=== PATIENT | female | born 1980 | race African-American/Black ===

== ENCOUNTER 2017-11-07 09:21 | Emergency (ER) | payer SELFPAY ==
[2017-11-07] MEDS ORDERED: CYCLOBENZAPRINE 10 MG TAB ONE (10:16)
[2017-11-07] MEDS ORDERED: KETOROLAC 30 MG/ML INJ ONE (10:16)
--- NOTE | 2017-11-07 11:34 | EDPHYS ---
Physician Documentation [facility] Name: Lisa Leung Age: 37 yrs Sex: Female : 1980 Arrival Date: 11/07/2017 Time: 09:26 Bed 5 Private MD: ED Physician Estevan Keenan HPI: 11/07 11:00 This 37 yrs old Black Female presents to ER via EMS with complaints of Back Pain. pm1 11:00 The patient presents with pain that is acute, with no known mechanism of injury. The pm1 symptoms are located in the left trapezius, right trapezius, left mid back and right mid back. Onset: The symptoms/episode began/occurred this morning. The pain does not radiate. Associated signs and symptoms: Pertinent negatives: abdominal pain, chest pain, dysuria, fever, headache, nausea, numbness, tingling, vomiting. The problem was sustained without known cause. Modifying factors: The patient symptoms are alleviated by remaining still, the patient symptoms are aggravated by bending, movement. Severity of symptoms: in the emergency department the symptoms have improved. The patient has experienced similar episodes in the past, multiple times. Patient here from [facility] for drug rehabilitation by court order. Patient reports history of muscle spasms to the back in the past . Historical: - Allergies: 09:29 Codeine; sv - Home Meds: :29 None [Active]; sv - PMHx: 09:29 Hypertension; Depression; sv - Immunization history:: Adult Immunizations up to date. - Social history:: Smoking status: Patient/guardian denies using tobacco, Patient uses street drugs, marijuana. ROS: 11:00 Constitutional: Negative for fever, chills, and weight loss, Eyes: Negative for injury, pm1 pain, redness, and discharge, ENT: Negative for injury, pain, and discharge, Neck: Negative for injury, pain, and swelling, Cardiovascular: Negative for chest pain, palpitations, and edema, Respiratory: Negative for shortness of breath, cough, wheezing, and pleuritic chest pain, Abdomen/GI: Negative for abdominal pain, nausea, vomiting, diarrhea, and constipation. 11:00 : Negative for injury, bleeding, discharge, and swelling, MS/Extremity: Negative for injury and deformity, Skin: Negative for injury, rash, and discoloration, Neuro: Negative for headache, weakness, numbness, tingling, and seizure. 11:00 Back: Positive for muscle spasms to trapezius muscles and mid back bilaterally. Exam: 11:00 Constitutional: This is a well developed, well nourished patient who is awake, alert, pm1 and in no acute distress. Head/Face: Normocephalic, atraumatic. Eyes: Pupils equal round and reactive to light, extra-ocular motions intact. Lids and lashes normal. Conjunctiva and sclera are non-icteric and not injected. Cornea within normal limits. Periorbital areas with no swelling, redness, or edema. ENT: Nares patent. No nasal discharge, no septal abnormalities noted. Tympanic membranes are normal and external auditory canals are clear. Oropharynx with no redness, swelling, or masses, exudates, or evidence of obstruction, uvula midline. Mucous membranes moist. 11:00 Neck: Trachea midline, no thyromegaly or masses palpated, and no cervical lymphadenopathy. Supple, full range of motion without nuchal rigidity, or vertebral point tenderness. No Meningismus. Chest/axilla: Normal chest wall appearance and motion. Nontender with no deformity. No lesions are appreciated. Cardiovascular: Regular rate and rhythm with a normal S1 and S2. No gallops, murmurs, or rubs. Normal PMI, no JVD. No pulse deficits. Respiratory: Lungs have equal breath sounds bilaterally, clear to auscultation and percussion. No rales, rhonchi or wheezes noted. No increased work of breathing, no retractions or nasal flaring. Abdomen/GI: Soft, non-tender, with normal bowel sounds. No distension or tympany. No guarding or rebound. No evidence of tenderness throughout. 11:00 Skin: Warm, dry with normal turgor. Normal color with no rashes, no lesions, and no evidence of cellulitis. MS/ Extremity: Pulses equal, no cyanosis. Neurovascular intact. Full, normal range of motion. 11:00 Back: muscle spasm, is appreciated in the left trapezius, right trapezius, left mid back and right mid back. 11:00 Back: normal spinal alignment noted. 11:00 Neuro: Orientation: is normal, Motor: is normal, moves all fours, Sensation: is normal, no obvious gross deficits, Gait: is steady, at a normal pace, without difficulty. Vital Signs: 09:20 BP 145 / 104; Pulse 98; Resp 18; Temp 98.7; Pulse Ox 100% ; Weight 58.97 kg; Height 5 sv ft. 3 in. (160.02 cm); 10:46 BP 166 / 95; Pulse 68; Resp 18; Pulse Ox 100% ; sv 11:24 BP 144 / 88; Pulse 65; Resp 18; Pulse Ox 100% ; sv 09:20 Body Mass Index 23.03 (58.97 kg, 160.02 cm) sv MDM: 09:54 Patient medically screened. pm1 11:32 Data reviewed: vital signs. Data interpreted: Pulse oximetry: on room air is 100 %. pm1 Interpretation: normal. Counseling: I had a detailed discussion with the patient and/or guardian regarding: the historical points, exam findings, and any diagnostic results supporting the discharge/admit diagnosis, the need for outpatient follow up, to return to the emergency department if symptoms worsen or persist or if there are any questions or concerns that arise at home. Administered Medications: 10:21 Drug: Flexeril 10 mg Route: PO; sv 11:50 Follow up: Response: No adverse reaction sv 10:22 Drug: TORadol 60 mg Route: IM; Site: right gluteus; sv 11:51 Follow up: Response: No adverse reaction sv Disposition: 11/07/17 11:33 Discharged to Home. Impression: Muscle spasm of back. - Condition is Stable. - Discharge Instructions: Back Pain, Adult, Muscle Cramps and Spasms, Heat Therapy. - Prescriptions for Naprosyn 500 mg Oral Tablet - take 1 tablet by ORAL route 2 times per day take with food; 30 tablet. Cyclobenzaprine 10 mg Oral Tablet - take 1 tablet by ORAL route every 8 hours As needed; 30 tablet. - Medication Reconciliation Form, Thank You Letter form. - Follow up: Emergency Department; When: As needed; Reason: Worsening of condition. Follow up: Private Physician; When: 2 - 3 days; Reason: Recheck today's complaints, Continuance of care, Re-evaluation by your physician. - Problem is new. - Symptoms have improved. Addendum: 11/09/2017 07:16 Co-signature as Attending Physician, Estevan Keenan MD I agree with the assessment and w a plan of care. Signatures: Conchita Quezada RN RN sv Paul Miramontes, ENVIRONMENTAL FIELD SERVICES TECHNICIAN ENVIRONMENTAL FIELD SERVICES TECHNICIAN pm1 Estevan Keenan MD MD wa
--- NOTE | 2017-11-07 11:34 | ER ---
Nurse's Notes [facility] Name: Lisa Leung Age: 37 yrs Sex: Female : 1980 Arrival Date: 11/07/2017 Time: 09:26 Bed 5 Private MD: Diagnosis: Muscle spasm of back Presentation: 11/07 09:20 Presenting complaint: EMS states: muscles spasms to the cervical and thoracic spine sv since about 0600 today. Pt brought from [facility] for marijuana rehab. BP 150/90. Transition of care: patient was received from another setting of care (rehabilitation facility). Onset of symptoms was November 07, 2017 at 06:00. Care prior to arrival: None. 09:20 Method Of Arrival: EMS: [facility] sv 09:20 Acuity: ALFREDA 4 sv Triage Assessment: 09:30 General: Appears uncomfortable, Behavior is cooperative, crying. Pain: Complains of sv pain in back Pain began 3 hours ago. Current management - is no interventions. EENT: No signs and/or symptoms were reported regarding the EENT system. Neuro: Level of Consciousness is awake, alert, obeys commands, Oriented to person, place, time, situation, Moves all extremities. Full function. Respiratory: Respiratory effort is even, unlabored, Respiratory pattern is regular, symmetrical. GI: No signs and/or symptoms were reported involving the gastrointestinal system. : No signs and/or symptoms were reported regarding the genitourinary system. Derm: Skin is normal. Musculoskeletal: Range of motion: intact in all extremities. Historical: - Allergies: 09:29 Codeine; sv - Home Meds: 09:29 None [Active]; sv - PMHx: 09:29 Hypertension; Depression; sv - Immunization history:: Adult Immunizations up to date. - Social history:: Smoking status: Patient/guardian denies using tobacco, Patient uses street drugs, marijuana. Screenin:32 Abuse screen: Denies threats or abuse. Denies injuries from another. Nutritional sv screening: No deficits noted. Tuberculosis screening: No symptoms or risk factors identified. Fall Risk None identified. Assessment: 09:33 Reassessment: See triage assessment. sv 10:30 Reassessment: Patient appears in no apparent distress at this time. Patient and/or sv family updated on plan of care and expected duration. Pain level reassessed. Patient is alert, oriented x 3, equal unlabored respirations, skin warm/dry/pink. 11:47 Reassessment: Patient appears in no apparent distress at this time. Patient and/or sv family updated on plan of care and expected duration. Pain level reassessed. Patient is alert, oriented x 3, equal unlabored respirations, skin warm/dry/pink. Patient states symptoms have improved. Vital Signs: 09:20 BP 145 / 104; Pulse 98; Resp 18; Temp 98.7; Pulse Ox 100% ; Weight 58.97 kg; Height 5 sv ft. 3 in. (160.02 cm); 10:46 BP 166 / 95; Pulse 68; Resp 18; Pulse Ox 100% ; sv 11:24 BP 144 / 88; Pulse 65; Resp 18; Pulse Ox 100% ; sv 09:20 Body Mass Index 23.03 (58.97 kg, 160.02 cm) sv ED Course: 09:26 Patient arrived in ED. sv 09:27 Conchita Quezada RN is Primary Nurse. sv 09:28 Triage completed. sv 09:30 Arm band placed on right wrist. sv 09:32 Patient has correct armband on for positive identification. Bed in low position. Call sv light in reach. Side rails up X2. Pulse ox on. NIBP on. Door closed. Warm blanket given. Head of bed elevated. 09:35 Paul Miramontes NP is PHCP. pm1 09:35 Estevan Keenan MD is Attending Physician. pm1 11:47 No provider procedures requiring assistance completed. Patient did not have IV access sv during this emergency room visit. Administered Medications: 10:21 Drug: Flexeril 10 mg Route: PO; sv 11:50 Follow up: Response: No adverse reaction sv 10:22 Drug: TORadol 60 mg Route: IM; Site: right gluteus; sv 11:51 Follow up: Response: No adverse reaction sv Outcome: 11:33 Discharge ordered by . pm1 11:47 Discharged to Rehab Facility sv 11:47 Condition: stable 11:47 Discharge instructions given to patient, Instructed on discharge instructions, follow up and referral plans. medication usage, Demonstrated understanding of instructions, follow-up care, medications, Prescriptions given X 2. 11:51 Patient left the ED. sv Signatures: Conchita Quezada RN RN sv Marinas, Paul, WHEEL MILL OPERATOR WHEEL MILL OPERATOR pm1 Corrections: (The following items were deleted from the chart) 11:47 11:47 Reassessment: Patient appears in no apparent distress at this time. No changes sv from previously documented assessment. Patient and/or family updated on plan of care and expected duration. Pain level reassessed. Patient is alert, oriented x 3, equal unlabored respirations, skin warm/dry/pink. sv
== END 2017-11-07 11:51 | disposition home or self-care (01) ==
LOC: ER 09:21
DX: M62.830 Muscle spasm of back (principal); I10 Essential (primary) hypertension; Z88.5 Allergy status to narcotic agent
CPT/HCPCS: 96372; 99284

== ENCOUNTER 2017-11-07 13:36 | Emergency (ER) | payer SELFPAY ==
--- NOTE | 2017-11-07 15:14 | ER ---
Nurse's Notes [facility] Name: Lisa Leung Age: 37 yrs Sex: Female : 1980 Arrival Date: 11/07/2017 Time: 13:37 Bed 6 Private MD: Diagnosis: Person with feared health complaint in whom no diagnosis is made Presentation: 11/07 13:37 Presenting complaint: EMS states: Found lying on the floor in the lobby of rehab hb facility, refusing to answer questions. Following simple commands, VS WNL. BGL 97. No injuries noted. Transition of care: patient was received from another setting of care (rehabilitation facility). Onset of symptoms was November 07, 2017. Care prior to arrival: None. 13:37 Method Of Arrival: EMS: [facility] 13:37 Acuity: ALFREDA 3 hb Historical: - Allergies: 13:39 Codeine; hb - PMHx: 13:39 Depression; Hypertension; hb - Immunization history:: Adult Immunizations up to date. - Social history:: Smoking status: Patient/guardian denies using tobacco. Screenin:50 Abuse screen: Denies threats or abuse. Nutritional screening: No deficits noted. sv Tuberculosis screening: No symptoms or risk factors identified. Fall Risk None identified. Assessment: 14:00 General: Appears in no apparent distress. comfortable, Behavior is cooperative, quiet. sv Pain: Denies pain. Neuro: Level of Consciousness is awake, alert, obeys commands, Oriented to person, place, time, situation, Moves all extremities. Full function Speech is normal. Respiratory: Respiratory effort is even, unlabored, Respiratory pattern is regular, symmetrical. Derm: Skin is normal. 14:50 Reassessment: Patient appears in no apparent distress at this time. Patient and/or sv family updated on plan of care and expected duration. Pain level reassessed. Patient is alert, oriented x 3, equal unlabored respirations, skin warm/dry/pink. 15:38 Reassessment: Patient appears in no apparent distress at this time. Patient and/or sv family updated on plan of care and expected duration. Pain level reassessed. Patient is alert, oriented x 3, equal unlabored respirations, skin warm/dry/pink. Vital Signs: 13:38 BP 155 / 94; Pulse 84; Resp 16; Temp 98; Pulse Ox 100% on R/A; Pain 0/10; hb ED Course: 13:37 Patient arrived in ED. hb 13:38 Paul Miramontes NP is PHCP. pm1 13:38 Estevan Keenan MD is Attending Physician. pm1 13:38 Triage completed. hb 13:40 Arm band placed on right wrist. hb 14:16 Radha Velazco, RN is Primary Nurse. ss 14:50 Primary Nurse role handed off by Radha Velazco RN 14:50 Conchita Quezada RN is Primary Nurse. sv 14:50 Patient has correct armband on for positive identification. Bed in low position. Call sv light in reach. Side rails up X2. 15:38 No provider procedures requiring assistance completed. Patient did not have IV access sv during this emergency room visit. Administered Medications: No medications were administered Outcome: 15:14 Discharge ordered by . pm1 15:39 Discharged to Rehab Facility sv 15:39 Condition: stable 15:39 Discharge instructions given to patient, Instructed on discharge instructions, follow up and referral plans. Demonstrated understanding of instructions, follow-up care. 15:40 Patient left the ED. sv Signatures: Conchita Quezada, RN RN Radha Velazco RN RN Paul Miramontes NP SAND MOLDER pm1 Karely Velazquez RN RN
--- NOTE | 2017-11-07 15:15 | EDPHYS ---
Physician Documentation [facility] Name: Lisa Leung Age: 37 yrs Sex: Female : 1980 Arrival Date: 11/07/2017 Time: 13:37 Bed 6 Private MD: ED Physician Estevan Keenan HPI: 11/07 15:10 This 37 yrs old Black Female presents to ER via EMS with complaints of hunger. pm1 15:10 Patient was seen her earlier today for muscle spasms and discharged home to drug pm1 rehabilitation facility. Patient is returning back since she decided to lie down on the floor and refused to talk to anybody. Patient reports to me that she told the person who picked her up that she was hungry and has not eaten today. On arrival to the ER, patient was alert and oriented without any complaints except for being hungry. . Historical: - Allergies: 13:39 Codeine; hb - PMHx: 13:39 Depression; Hypertension; hb - Immunization history:: Adult Immunizations up to date. - Social history:: Smoking status: Patient/guardian denies using tobacco. ROS: 15:10 Constitutional: Negative for fever, chills, and weight loss, Eyes: Negative for injury, pm1 pain, redness, and discharge, ENT: Negative for injury, pain, and discharge, Neck: Negative for injury, pain, and swelling, Cardiovascular: Negative for chest pain, palpitations, and edema, Respiratory: Negative for shortness of breath, cough, wheezing, and pleuritic chest pain, Abdomen/GI: Negative for abdominal pain, nausea, vomiting, diarrhea, and constipation, Back: Negative for injury and pain, MS/Extremity: Negative for injury and deformity, Skin: Negative for injury, rash, and discoloration, Neuro: Negative for headache, weakness, numbness, tingling, and seizure. Exam: 15:10 Constitutional: This is a well developed, well nourished patient who is awake, alert, pm1 and in no acute distress. Head/Face: Normocephalic, atraumatic. Eyes: Pupils equal round and reactive to light, extra-ocular motions intact. Lids and lashes normal. Conjunctiva and sclera are non-icteric and not injected. Cornea within normal limits. Periorbital areas with no swelling, redness, or edema. ENT: Nares patent. No nasal discharge, no septal abnormalities noted. Tympanic membranes are normal and external auditory canals are clear. Oropharynx with no redness, swelling, or masses, exudates, or evidence of obstruction, uvula midline. Mucous membranes moist. Neck: Trachea midline, no thyromegaly or masses palpated, and no cervical lymphadenopathy. Supple, full range of motion without nuchal rigidity, or vertebral point tenderness. No Meningismus. Chest/axilla: Normal chest wall appearance and motion. Nontender with no deformity. No lesions are appreciated. Cardiovascular: Regular rate and rhythm with a normal S1 and S2. No gallops, murmurs, or rubs. Normal PMI, no JVD. No pulse deficits. Respiratory: Lungs have equal breath sounds bilaterally, clear to auscultation and percussion. No rales, rhonchi or wheezes noted. No increased work of breathing, no retractions or nasal flaring. Abdomen/GI: Soft, non-tender, with normal bowel sounds. No distension or tympany. No guarding or rebound. No evidence of tenderness throughout. Back: No spinal tenderness. No costovertebral tenderness. Full range of motion. Skin: Warm, dry with normal turgor. Normal color with no rashes, no lesions, and no evidence of cellulitis. MS/ Extremity: Pulses equal, no cyanosis. Neurovascular intact. Full, normal range of motion. 15:10 Neuro: Orientation: is normal, to person, place, time \T\ situation. Mentation: is normal, Cerebellar function: normal finger to nose testing, Motor: moves all fours, Sensation: is normal, no obvious gross deficits, Gait: is steady, at a normal pace, without difficulty. 15:10 Psych: Behavior/mood is anxious, Affect is animated, Patient has no thoughts/intents to harm self or others. Vital Signs: 13:38 BP 155 / 94; Pulse 84; Resp 16; Temp 98; Pulse Ox 100% on R/A; Pain 0/10; hb MDM: 13:38 Patient medically screened. pm1 15:13 Data reviewed: vital signs. Data interpreted: Pulse oximetry: on room air is 100 %. pm1 Interpretation: normal. Counseling: I had a detailed discussion with the patient and/or guardian regarding: the historical points, exam findings, and any diagnostic results supporting the discharge/admit diagnosis, the need for outpatient follow up, to return to the emergency department if symptoms worsen or persist or if there are any questions or concerns that arise at home. 11/07 13:43 Order name: Diet Regular; Complete Time: 13:44 Administered Medications: No medications were administered Disposition: 11/07/17 15:14 Discharged to Home. Impression: Person with feared health complaint in whom no diagnosis is made. - Condition is Stable. - Medication Reconciliation Form, Thank You Letter form. - Follow up: Emergency Department; When: As needed; Reason: Worsening of condition. Follow up: Private Physician; When: 2 - 3 days; Reason: Recheck today's complaints, Continuance of care, Re-evaluation by your physician. - Problem is new. - Symptoms are resolved. Addendum: 11/09/2017 07:30 Co-signature as Attending Physician, Estevan Keenan MD I agree with the assessment and w a plan of care. Signatures: Conchita Quezada RN RN sv Marinas, Patrick, ABIMAEL SPLIT LEATHER MOSSER pm1 Karely Velazquez RN RN hb Appiah, William, MD MD id
== END 2017-11-07 15:40 | disposition home or self-care (01) ==
LOC: ER 13:36
DX: Z71.1 Person with feared health complaint in whom no diagnosis is made (principal); I10 Essential (primary) hypertension; Z88.5 Allergy status to narcotic agent
CPT/HCPCS: 99283

== ENCOUNTER 2017-12-20 13:40 | Emergency (ER) | payer SELFPAY ==
--- NOTE | 2017-12-20 15:26 | ER ---
Nurse's Notes [facility] Name: Lisa Leung Age: 37 yrs Sex: Female : 1980 Arrival Date: 12/20/2017 Time: 13:43 Bed 8 Private MD: None, None Diagnosis: Anemia, unspecified Presentation: 12/20 14:07 Presenting complaint: Patient states: Sent by [facility] to be evaluated for low HGB. aj Patient has HX of anemia. Transition of care: patient was not received from another setting of care. Onset of symptoms was 1994. Care prior to arrival: None. 14:07 Method Of Arrival: Ambulatory aj 14:07 Acuity: ALFREDA 3 aj 15:36 Risk Assessment: Do you want to hurt yourself or someone else? Patient reports no rv desire to harm self or others. 15:36 Initial Sepsis Screen: Does the patient meet any 2 criteria? No. Patient's initial rv sepsis screen is negative. 15:38 Initial Sepsis Screen: Does the patient have a suspected source of infection? No. rv Patient's initial sepsis screen is negative. Triage Assessment: 14:08 General: Appears in no apparent distress. comfortable, Behavior is calm, cooperative, aj appropriate for age. Neuro: Level of Consciousness is awake, alert, obeys commands, Oriented to person, place, time, situation, Appropriate for age. Respiratory: Airway is patent Respiratory effort is even, unlabored, Respiratory pattern is regular, symmetrical. Derm: Skin is intact, is healthy with good turgor, Skin is pink, warm \T\ dry. normal. 15:37 Pain: Denies pain. rv PIT LABORER: 14:08 LMP 12/12/2017 aj Historical: - Allergies: 14:08 Codeine; aj - Home Meds: 14:08 Depakote Oral [Active]; Seroquel Oral [Active]; aj - PMHx: 14:08 Depression; Hypertension; Bipolar disorder; HIV; Anemia; aj - Immunization history:: Adult Immunizations up to date. - Social history:: Smoking status: Patient uses tobacco products, smokes one-half pack cigarettes per day. - Ebola Screening: : Patient negative for fever greater than or equal to 101.5 degrees Fahrenheit, and additional compatible Ebola Virus Disease symptoms Patient denies exposure to infectious person Patient denies travel to an Ebola-affected area in the 21 days before illness onset. Screenin:35 Abuse screen: Denies threats or abuse. Denies injuries from another. Nutritional rv screening: No deficits noted. Tuberculosis screening: No symptoms or risk factors identified. Fall Risk None identified. Assessment: 15:39 General: Appears in no apparent distress. comfortable, Behavior is calm, cooperative. rv Pain: Denies pain. Neuro: No deficits noted. Cardiovascular: No deficits noted. Respiratory: No deficits noted. GI: No signs and/or symptoms were reported involving the gastrointestinal system. : No signs and/or symptoms were reported regarding the genitourinary system. EENT: No signs and/or symptoms were reported regarding the EENT system. Derm: No signs and/or symptoms reported regarding the dermatologic system. Musculoskeletal: No signs and/or symptoms reported regarding the musculoskeletal system. Vital Signs: 14:08 BP 160 / 88; Pulse 82; Resp 16; Temp 98.1; Pulse Ox 100% on R/A; Weight 57.61 kg; aj Height 5 ft. 3 in. (160.02 cm); 15:34 BP 135 / 88; Pulse 83; Resp 16; Pulse Ox 100% ; rv 14:08 Body Mass Index 22.50 (57.61 kg, 160.02 cm) aj ED Course: 13:43 Patient arrived in ED. mr 13:44 None, None is Private Physician. mr 13:59 Patient's name was called from ER lobby. No response. aj 14:08 Triage completed. aj 14:08 Arm band placed on left wrist. Patient placed in waiting room, Patient notified of wait aj time. 15:03 Paul Miramontes NP is PHCP. pm1 15:03 Julio Dey MD is Attending Physician. pm1 15:15 Angeli Headley, PONCHO is Primary Nurse. tw2 15:36 No provider procedures requiring assistance completed. rv 15:37 Patient did not have IV access during this emergency room visit. rv 15:38 Patient has correct armband on for positive identification. Placed in gown. Bed in low rv position. Call light in reach. Side rails up X 1. Pulse ox on. NIBP on. Administered Medications: No medications were administered Outcome: 15:25 Discharge ordered by . pm1 15:36 Discharged to home rv 15:36 Condition: stable 15:36 Discharge instructions given to patient. 15:41 Patient left the ED. rv Signatures: Racquel Mckeon RN RN Estela Escamilla Patrick, DELI SLICER DELI SLICER pm1 Angeli Headley RN RN tw2 Alcides Dowell RN RN rv
--- NOTE | 2017-12-20 15:26 | EDPHYS ---
Physician Documentation [facility] Name: Lisa Leung Age: 37 yrs Sex: Female : 1980 Arrival Date: 12/20/2017 Time: 13:43 Bed 8 Private MD: None, None ED Physician Julio Dey HPI: 12/20 15:20 This 37 yrs old Black Female presents to ER via Ambulatory with complaints of Abnormal pm1 Lab Results. 15:20 Patient is currently at [facility] for drug rehabilitation. Patient had labs drawn on pm1 12/18 and was instructed to report to the emergency department for further evaluation of HGB of 8.3. Patient with a history of anemia. Patient reports that she knows that she has been anemic since the age of 12-13 and has taken iron supplementation in the past. Patient without any chest pain, shortness of breath, or bleeding. 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 - Social history:: Smoking status: Patient uses tobacco products, smokes one-half pack cigarettes per day. - Ebola Screening: : Patient negative for fever greater than or equal to 101.5 degrees Fahrenheit, and additional compatible Ebola Virus Disease symptoms Patient denies exposure to infectious person Patient denies travel to an Ebola-affected area in the 21 days before illness onset. ROS: 15:20 Constitutional: Negative for fever, chills, and weight loss, Eyes: Negative for injury, pm1 pain, redness, and discharge, ENT: Negative for injury, pain, and discharge, Neck: Negative for injury, pain, and swelling, Cardiovascular: Negative for chest pain, palpitations, and edema, Respiratory: Negative for shortness of breath, cough, wheezing, and pleuritic chest pain, Abdomen/GI: Negative for abdominal pain, nausea, vomiting, diarrhea, and constipation, Back: Negative for injury and pain, : Negative for injury, bleeding, discharge, and swelling, MS/Extremity: Negative for injury and deformity, Skin: Negative for injury, rash, and discoloration, Neuro: Negative for headache, weakness, numbness, tingling, and seizure. Exam: 15:20 Constitutional: This is a well developed, well nourished patient who is awake, alert, pm1 and in no acute distress. Head/Face: Normocephalic, atraumatic. Eyes: Pupils equal round and reactive to light, extra-ocular motions intact. Lids and lashes normal. Conjunctiva and sclera are non-icteric and not injected. Cornea within normal limits. Periorbital areas with no swelling, redness, or edema. ENT: Nares patent. No nasal discharge, no septal abnormalities noted. Tympanic membranes are normal and external auditory canals are clear. Oropharynx with no redness, swelling, or masses, exudates, or evidence of obstruction, uvula midline. Mucous membranes moist. Neck: Trachea midline, no thyromegaly or masses palpated, and no cervical lymphadenopathy. Supple, full range of motion without nuchal rigidity, or vertebral point tenderness. No Meningismus. Chest/axilla: Normal chest wall appearance and motion. Nontender with no deformity. No lesions are appreciated. Cardiovascular: Regular rate and rhythm with a normal S1 and S2. No gallops, murmurs, or rubs. Normal PMI, no JVD. No pulse deficits. Respiratory: Lungs have equal breath sounds bilaterally, clear to auscultation and percussion. No rales, rhonchi or wheezes noted. No increased work of breathing, no retractions or nasal flaring. Abdomen/GI: Soft, non-tender, with normal bowel sounds. No distension or tympany. No guarding or rebound. No evidence of tenderness throughout. Back: No spinal tenderness. No costovertebral tenderness. Full range of motion. Skin: Warm, dry with normal turgor. Normal color with no rashes, no lesions, and no evidence of cellulitis. MS/ Extremity: Pulses equal, no cyanosis. Neurovascular intact. Full, normal range of motion. 15:20 Neuro: Orientation: is normal, Motor: is normal, moves all fours, Sensation: is normal, no obvious gross deficits, Gait: is steady, at a normal pace, without difficulty. Vital Signs: 14:08 BP 160 / 88; Pulse 82; Resp 16; Temp 98.1; Pulse Ox 100% on R/A; Weight 57.61 kg; aj Height 5 ft. 3 in. (160.02 cm); 15:34 BP 135 / 88; Pulse 83; Resp 16; Pulse Ox 100% ; rv 14:08 Body Mass Index 22.50 (57.61 kg, 160.02 cm) aj MDM: 15:13 Patient medically screened. pm1 15:23 Data reviewed: vital signs. Data interpreted: Pulse oximetry: on room air is 100 %. pm1 Interpretation: normal. Counseling: I had a detailed discussion with the patient and/or guardian regarding: the historical points, exam findings, and any diagnostic results supporting the discharge/admit diagnosis, the need for outpatient follow up, a family practitioner, to return to the emergency department if symptoms worsen or persist or if there are any questions or concerns that arise at home. Administered Medications: No medications were administered Disposition: 19:16 Co-signature as Attending Physician, Julio Dey MD I agree with the assessment and kdr plan of care. Disposition: 12/20/17 15:25 Discharged to Home. Impression: Anemia, unspecified. - Condition is Stable. - Discharge Instructions: Anemia, Nonspecific. - Medication Reconciliation Form, Thank You Letter form. - Follow up: Emergency Department; When: As needed; Reason: Worsening of condition. Follow up: Private Physician; When: 2 - 3 days; Reason: Recheck today's complaints, Continuance of care, Re-evaluation by your physician. - Problem is chronic. - Symptoms are unchanged. Signatures: Racquel Mckeon RN RN Julio Dey MD MD kdr Marinas, Patrick, NP MANAGER SECONDARY pm1 Alcides Dowell RN RN rv Corrections: (The following items were deleted from the chart) 15:41 15:25 12/20/2017 15:25 Discharged to Home. Impression: Anemia, unspecified. Condition rv is Stable. Forms are Medication Reconciliation Form, Thank You Letter, Antibiotic Education, Prescription Opioid Use. Follow up: Emergency Department; When: As needed; Reason: Worsening of condition. Follow up: Private Physician; When: 2 - 3 days; Reason: Recheck today's complaints, Continuance of care, Re-evaluation by your physician. Problem is chronic. Symptoms are unchanged. pm1
== END 2017-12-20 15:41 | disposition home or self-care (01) ==
LOC: ER 13:40
DX: D64.9 Anemia, unspecified (principal)
CPT/HCPCS: 99283